=== PATIENT | female | born 1990 | race Two or more races ===

== ENCOUNTER 2025-02-06 13:38 | Emergency (ER) | payer SELFPAY ==
[~2025-02-06] VITALS: Ht 162.6 cm; Wt 93.0 kg
[2025-02-06 15:02] VITALS: BP 124/74; O2SAT 97
== END 2025-02-06 15:03 | disposition home or self-care (01) ==
LOC: ER 13:38
DX: R07.9 Chest pain, unspecified (principal)
CPT/HCPCS: 71045-TC